=== PATIENT | female | born 1990 | race Caucasian/White ===

== ENCOUNTER 2017-07-31 06:16 | Day surgery (SDC) | payer BC, OTHER ==
[2017-07-31] MEDS ORDERED: ONDANSETRON 4 MG/2 ML VIAL IVPUSH PRN (07:13)
[2017-07-31] MEDS ORDERED: LACTATED RINGERS SOLUTION 1,000 ML IV SCH (07:15)
--- NOTE | 2017-07-31 07:43 | HP ---
Admitting History and Physical - Admission History of Present Illness: Patient is a 26 y/o female with a past medical history of depression and anxiety. Patient presents for ect, she reports receiving ect in the past, last treatment was in 06/29. patient was admitted in [facility] for 6 weeks following a suicide attempt. During this admission she received ECT and reports improvement with depressive symptoms. patient does reports suicidal ideation however, she does not have plan. Patient denies any homicidal ideation , visual or auditory hallucinations. History Source: Patient - Past Medical History ...LMP: 07/17/17 - Smoking History Smoking history: Never smoked Have you smoked in the past 12 months: No - Alcohol/Substance Use Hx Alcohol Use: Yes (SOCIALLY) Home Medications - Allergies Allergies/Adverse Reactions: Allergies Allergy/AdvReac Type Severity Reaction Status Date / Time No Known Drug Allergies Allergy Verified 07/30/17 13:22 - Home Medications Home Medications: Ambulatory Orders Clozapine [Clozapine Odt] 50 mg PO DAILY 07/30/17 Clozapine [Clozapine Odt] 150 mg PO HS 07/30/17 Metformin HCl 500 mg PO BID 07/30/17 Nortriptyline HCl [Pamelor -] 50 mg PO HS 07/30/17 Family Disease History - Family Disease History Family History: Denies Review of Systems - Review of Systems Constitutional: reports: No Symptoms Eyes: reports: No Symptoms HENT: reports: No Symptoms Neck: reports: No Symptoms Cardiovascular: reports: No Symptoms Respiratory: reports: No Symptoms Gastrointestinal: reports: No Symptoms Genitourinary: reports: No Symptoms Musculoskeletal: reports: No Symptoms Integumentary: reports: No Symptoms Neurological: reports: No Symptoms Endocrine: reports: No Symptoms Hematology/Lymphatic: reports: No Symptoms Psychiatric: reports: Depression Physical Examination Constitutional: Yes: Well Nourished, Poor Hygeine Eyes: Yes: WNL, Conjunctiva Clear, EOM Intact HENT: Yes: WNL, Atraumatic, Normocephalic Neck: Yes: WNL, Supple, Trachea Midline Cardiovascular: Yes: WNL, Regular Rate and Rhythm, S1, S2 Respiratory: Yes: WNL, Regular, CTA Bilaterally Gastrointestinal: Yes: WNL, Normal Bowel Sounds, Soft ...Rectal Exam: Yes: Deferred Renal/: Yes: WNL Musculoskeletal: Yes: WNL Edema: No Integumentary: Yes: Tattoos, Other (linear scars to distal billateteral upper extremities) Neurological: Yes: WNL, Alert, Oriented ...Motor Strength: WNL Psychiatric: Yes: WNL, Alert, Oriented, Other (flat affect) Imaging - Results EKG: Other (nsr,non specific t wave abnormality, QTC 458) Assessment/Plan patient is a 26 y/o female that presents for ect, labs and ekg reviewed patient is medically optimized for procedure informed consent, risks/benefits to be obtained by Dr Calle
[2017-07-31 08:08] LABS: ALK PHOS 94 U/L (32-92); ANION GAP 7 (8-16); BILIRUBIN,TOTAL 0.4 mg/dl (0.2-1.0); BLOOD UREA NITROGEN 12 mg/dl (7-18); CALCIUM 9.5 mg/dl (8.4-10.2); CHLORIDE 105 mmol/L (98-107); CO2 27 mmol/L (22-28); CREATININE 0.9 mg/dl (0.6-1.3); POTASSIUM 3.9 mmol/L (3.5-5.1); SGOT/AST 14 U/L (10-42); SGPT/ALT 12 U/L (10-40); SODIUM 139 mmol/L (136-145); TOT PROT 6.6 g/dl (6.4-8.3)
[2017-07-31] MEDS ORDERED: KETAMINE HCL 500 MG/10 ML VIAL ONE (08:14)
[2017-07-31 12:28] LABS: GLUCOSE,RANDOM 105 mg/dL (74-106)
[2017-07-31 17:02] LABS: MAGNESIUM 1.9 mg/dL (1.8-2.4)
--- NOTE | 2017-07-31 17:39 | EKG ---
Test Reason : Blood Pressure : / mmHG Vent. Rate : 086 BPM Atrial Rate : 086 BPM P-R Int : 150 ms QRS Dur : 082 ms QT Int : 388 ms P-R-T Axes : 009 011 -18 degrees QTc Int : 464 ms NORMAL SINUS RHYTHM NONSPECIFIC T WAVE ABNORMALITY PROLONGED QT NO PREVIOUS ECGS AVAILABLE Confirmed by MD MARY, TY ([id number]) on 07/31/2017 5:39:34 PM Referred By: Mando Calle Confirmed By:TY HERNANDEZ MD
== END 2017-07-31 09:50 | disposition home or self-care (01) ==
LOC: FECT 06:16
PROVIDERS: ATTEND Psychiatry & Neurology Psychiatry
PROC: GZB4ZZZ Other Electroconvulsive Therapy (ICD-10-PCS; principal; 2017-07-31 07:30)
DX: F33.2 Major depressive disorder, recurrent severe without psychotic features (principal)
CPT/HCPCS: 36415; 80053; 83735; 84703; 90870; 93005; 94760

== ENCOUNTER 2017-08-04 05:48 | Day surgery (SDC) | payer BC, OTHER ==
[2017-08-04] MEDS ORDERED: KETAMINE HCL 500 MG/10 ML VIAL ONE (07:34)
== END 2017-08-04 09:30 | disposition home or self-care (01) ==
LOC: FECT 05:48
PROVIDERS: ATTEND Psychiatry & Neurology Psychiatry
PROC: GZB4ZZZ Other Electroconvulsive Therapy (ICD-10-PCS; principal; 2017-08-04 07:45)
DX: F33.2 Major depressive disorder, recurrent severe without psychotic features (principal)
CPT/HCPCS: 84703; 90870; 94760

== ENCOUNTER 2017-08-06 05:44 | Day surgery (SDC) | payer BC, OTHER ==
[2017-08-06] MEDS ORDERED: KETAMINE HCL 500 MG/10 ML VIAL ONE (07:22)
[2017-08-06] MEDS ORDERED: ACETAMINOPHEN 325 MG TABLET (FP) PO PRN (07:36)
== END 2017-08-06 09:00 | disposition home or self-care (01) ==
LOC: FECT 05:44
PROVIDERS: ATTEND Psychiatry & Neurology Psychiatry
PROC: GZB4ZZZ Other Electroconvulsive Therapy (ICD-10-PCS; principal; 2017-08-06 07:45)
DX: F33.2 Major depressive disorder, recurrent severe without psychotic features (principal)
CPT/HCPCS: 90870; 94760

== ENCOUNTER 2017-08-08 05:39 | Day surgery (SDC) | payer BC, OTHER ==
[2017-08-08] MEDS ORDERED: MIDAZOLAM HCL 2 MG/2 ML SINGLE DOSE VIAL ONE (08:08)
[2017-08-08] MEDS ORDERED: KETAMINE HCL 500 MG/10 ML VIAL ONE (08:08)
== END 2017-08-08 11:08 | disposition home or self-care (01) ==
LOC: FECT 05:39
PROVIDERS: ATTEND Psychiatry & Neurology Psychiatry
PROC: GZB4ZZZ Other Electroconvulsive Therapy (ICD-10-PCS; principal; 2017-08-08 07:30)
DX: F33.2 Major depressive disorder, recurrent severe without psychotic features (principal)
CPT/HCPCS: 84703; 90870; 94760

== ENCOUNTER 2017-08-11 05:44 | Day surgery (SDC) | payer BC, OTHER ==
[2017-08-11] MEDS ORDERED: MIDAZOLAM HCL 2 MG/2 ML SINGLE DOSE VIAL ONE (07:51)
[2017-08-11] MEDS ORDERED: KETAMINE HCL 500 MG/10 ML VIAL ONE (07:51)
== END 2017-08-11 09:35 | disposition home or self-care (01) ==
LOC: FECT 05:44
PROVIDERS: ATTEND Psychiatry & Neurology Psychiatry
PROC: GZB4ZZZ Other Electroconvulsive Therapy (ICD-10-PCS; principal; 2017-08-11 07:30)
DX: F33.2 Major depressive disorder, recurrent severe without psychotic features (principal)
CPT/HCPCS: 90870; 94760

== ENCOUNTER 2017-08-13 05:41 | Day surgery (SDC) | payer BC, OTHER ==
[2017-08-13] MEDS ORDERED: KETAMINE HCL 500 MG/10 ML VIAL ONE (07:30)
[2017-08-13] MEDS ORDERED: ACETAMINOPHEN 325 MG TABLET (FP) PO PRN (07:59)
[2017-08-13] MEDS ORDERED: ONDANSETRON 4 MG/2 ML VIAL IVPUSH PRN (07:59)
[2017-08-13] MEDS ORDERED: PROMETHAZINE HCL 25 MG/1 ML VIAL IVPUSH PRN (07:59)
== END 2017-08-13 09:45 | disposition home or self-care (01) ==
LOC: FECT 05:41
PROVIDERS: ATTEND Psychiatry & Neurology Psychiatry
PROC: GZB4ZZZ Other Electroconvulsive Therapy (ICD-10-PCS; principal; 2017-08-13 07:15)
DX: F33.2 Major depressive disorder, recurrent severe without psychotic features (principal)
CPT/HCPCS: 84703; 90870; 94760

== ENCOUNTER 2017-08-15 05:41 | Day surgery (SDC) | payer BC, OTHER ==
[2017-08-11 09:10] VITALS: BMI 30.8
[2017-08-15] MEDS ORDERED: KETAMINE HCL 500 MG/10 ML VIAL ONE (07:44)
[2017-08-15 08:50] VITALS: TEMP 98
[2017-08-15 09:48] VITALS: BP 129/89; PULSE 92
== END 2017-08-15 09:40 | disposition home or self-care (01) ==
LOC: FECT 05:41
PROVIDERS: ATTEND Psychiatry & Neurology Psychiatry
PROC: GZB4ZZZ Other Electroconvulsive Therapy (ICD-10-PCS; principal; 2017-08-15 07:15)
DX: F33.2 Major depressive disorder, recurrent severe without psychotic features (principal)
CPT/HCPCS: 84703; 90870; 94760

== ENCOUNTER 2017-08-18 05:45 | Day surgery (SDC) | payer BC, OTHER ==
[2017-08-11 12:34] VITALS: BMI 30.8
[2017-08-18] MEDS ORDERED: KETAMINE HCL 500 MG/10 ML VIAL ONE (07:23)
[2017-08-18] MEDS ORDERED: ONDANSETRON 4 MG/2 ML VIAL IVPUSH PRN (08:03)
[2017-08-18] MEDS ORDERED: oxyCODONE HCL 5 MG TABLET PO PRN (08:03)
[2017-08-18] MEDS ORDERED: LACTATED RINGERS SOLUTION 1,000 ML IV SCH (08:15)
[2017-08-18 08:53] VITALS: TEMP 98.4
[2017-08-18 09:48] VITALS: BP 130/92; PULSE 92
== END 2017-08-18 10:01 | disposition home or self-care (01) ==
LOC: FECT 05:45
PROVIDERS: ATTEND Psychiatry & Neurology Psychiatry
PROC: GZB4ZZZ Other Electroconvulsive Therapy (ICD-10-PCS; principal; 2017-08-18 07:30)
DX: F33.2 Major depressive disorder, recurrent severe without psychotic features (principal)
CPT/HCPCS: 90870; 94760

== ENCOUNTER 2017-08-22 05:41 | Day surgery (SDC) | payer BC, OTHER ==
[2017-08-19 10:12] VITALS: BMI 30.8
[2017-08-22] MEDS ORDERED: KETAMINE HCL 500 MG/10 ML VIAL ONE (09:10)
[2017-08-22 10:13] VITALS: TEMP 98
[2017-08-22 11:20] VITALS: BP 133/84; PULSE 96
== END 2017-08-22 11:15 | disposition home or self-care (01) ==
LOC: FECT 05:41
PROVIDERS: ATTEND Psychiatry & Neurology Psychiatry
PROC: GZB4ZZZ Other Electroconvulsive Therapy (ICD-10-PCS; principal; 2017-08-22 07:15)
DX: F33.2 Major depressive disorder, recurrent severe without psychotic features (principal)
CPT/HCPCS: 84703; 90870; 94760

== ENCOUNTER 2017-08-25 05:39 | Day surgery (SDC) | payer BC, OTHER ==
[2017-08-19 10:55] VITALS: BMI 30.8
[2017-08-25] MEDS ORDERED: KETAMINE HCL 500 MG/10 ML VIAL ONE (07:15)
[2017-08-25 08:53] VITALS: TEMP 98
[2017-08-25 09:27] VITALS: BP 128/84; PULSE 92
== END 2017-08-25 09:29 | disposition home or self-care (01) ==
LOC: FECT 05:39
PROVIDERS: ATTEND Psychiatry & Neurology Psychiatry
PROC: GZB4ZZZ Other Electroconvulsive Therapy (ICD-10-PCS; principal; 2017-08-25 07:00)
DX: F33.2 Major depressive disorder, recurrent severe without psychotic features (principal)
CPT/HCPCS: 90870; 94760

== ENCOUNTER 2017-08-27 05:40 | Day surgery (SDC) | payer BC, OTHER ==
[2017-08-19 10:57] VITALS: BMI 30.8
[2017-08-27] MEDS ORDERED: KETAMINE HCL 500 MG/10 ML VIAL ONE (07:40)
[2017-08-27 08:53] VITALS: TEMP 98.6
[2017-08-27 09:27] VITALS: BP 124/92; PULSE 90
== END 2017-08-27 09:45 | disposition home or self-care (01) ==
LOC: FECT 05:40
PROVIDERS: ATTEND Psychiatry & Neurology Psychiatry
PROC: GZB4ZZZ Other Electroconvulsive Therapy (ICD-10-PCS; principal; 2017-08-27 07:00)
DX: F33.2 Major depressive disorder, recurrent severe without psychotic features (principal)
CPT/HCPCS: 84703; 90870; 94760

== ENCOUNTER 2017-08-29 05:47 | Day surgery (SDC) | payer BC, OTHER ==
[2017-08-25 11:47] VITALS: BMI 30.8
[2017-08-29] MEDS ORDERED: KETAMINE HCL 500 MG/10 ML VIAL ONE (07:31)
[2017-08-29 08:47] VITALS: TEMP 97.8
[2017-08-29 09:14] VITALS: BP 130/80; PULSE 92
== END 2017-08-29 09:40 | disposition home or self-care (01) ==
LOC: FECT 05:47
PROVIDERS: ATTEND Psychiatry & Neurology Psychiatry
PROC: GZB4ZZZ Other Electroconvulsive Therapy (ICD-10-PCS; principal; 2017-08-29 08:30)
DX: F33.2 Major depressive disorder, recurrent severe without psychotic features (principal)

== ENCOUNTER 2017-09-01 05:57 | Day surgery (SDC) | payer BC, OTHER ==
[2017-08-29 17:22] VITALS: BMI 30.8
--- NOTE | 2017-09-01 06:49 | HP ---
Admitting History and Physical - Admission History of Present Illness: patient is a 26 y/o female with a past medical history of depression and anxiety. Patient presents for ect her last ect was 08/29/18. Patient reports feeling a slight improvement in depressive symptoms since starting ect. She denies any recent illnesses or hospitalizations. Patient denies any suicidal or homicidal ideation, visual or auditory hallucinations. History Source: Patient Limitations to Obtaining History: No Limitations - Past Medical History ...LMP: 08/18/17 - Smoking History Smoking history: Never smoked Have you smoked in the past 12 months: No - Alcohol/Substance Use Hx Alcohol Use: Yes (SOCIALLY) History of Substance Use: reports: None - Social History Usual Living Arrangement: Yes: With Parent ADL: Independent History of Recent Travel: No Home Medications - Allergies Allergies/Adverse Reactions: Allergies Allergy/AdvReac Type Severity Reaction Status Date / Time No Known Drug Allergies Allergy Verified 08/12/17 17:15 - Home Medications Home Medications: Ambulatory Orders Clozapine [Clozapine Odt] 50 mg PO DAILY 07/30/17 Clozapine [Clozapine Odt] 150 mg PO HS 07/30/17 Metformin HCl 500 mg PO BID 07/30/17 Nortriptyline HCl [Pamelor -] 50 mg PO HS 07/30/17 Doxycycline Hyclate 100 mg PO BID 08/13/17 Family Disease History - Family Disease History Family History: Denies Review of Systems - Review of Systems Constitutional: reports: No Symptoms Eyes: reports: No Symptoms HENT: reports: No Symptoms Neck: reports: No Symptoms Cardiovascular: reports: No Symptoms Respiratory: reports: No Symptoms Gastrointestinal: reports: No Symptoms Genitourinary: reports: No Symptoms Breasts: reports: No Symptoms Reported Musculoskeletal: reports: No Symptoms Integumentary: reports: No Symptoms Neurological: reports: No Symptoms Endocrine: reports: No Symptoms Hematology/Lymphatic: reports: No Symptoms Psychiatric: reports: No Symptoms Physical Examination Constitutional: Yes: Well Nourished, Calm, Other Eyes: Yes: WNL, Conjunctiva Clear, EOM Intact HENT: Yes: WNL, Atraumatic, Normocephalic Neck: Yes: WNL, Supple, Trachea Midline Cardiovascular: Yes: WNL, Regular Rate and Rhythm, S1, S2 Respiratory: Yes: WNL, Regular, CTA Bilaterally Gastrointestinal: Yes: WNL, Normal Bowel Sounds, Soft ...Rectal Exam: Yes: Deferred Renal/: Yes: WNL Musculoskeletal: Yes: WNL Extremities: Yes: WNL Edema: No Peripheral Pulses WNL: Yes Peripheral Pulses: Left Radial: 4+, Right Radial: 4+, Left Doralis Pedis: 3+, Right Dorsalis Pedis: 3+, Left Femoral: 3+, Right Femoral: 3+ Integumentary: Yes: Other (closed commodenes to face) ...Motor Strength: WNL Psychiatric: Yes: WNL, Alert, Oriented Labs: reviewed 07/31 Imaging - Results EKG: Image Reviewed, Other (nsr) Assessment/Plan patient is a 26 y/o female that presents for ect, labs and ekg reviewed patient is medically optimized for procedure informed consent, risks/benefits to be obtained by Dr Calle.
[2017-09-01] MEDS ORDERED: KETAMINE HCL 500 MG/10 ML VIAL ONE (08:54)
[2017-09-01] MEDS ORDERED: ONDANSETRON 4 MG/2 ML VIAL IVPUSH PRN (09:59)
[2017-09-01] MEDS ORDERED: oxyCODONE HCL 5 MG TABLET PO PRN (09:59)
[2017-09-01] MEDS ORDERED: LACTATED RINGERS SOLUTION 1,000 ML IV SCH (10:00)
[2017-09-01 11:17] VITALS: TEMP 97.9
[2017-09-01 11:19] VITALS: BP 142/94; PULSE 92
== END 2017-09-01 11:10 | disposition home or self-care (01) ==
LOC: FECT 05:57
PROVIDERS: ATTEND Psychiatry & Neurology Psychiatry
PROC: GZB4ZZZ Other Electroconvulsive Therapy (ICD-10-PCS; principal; 2017-09-01 08:45)
DX: F33.2 Major depressive disorder, recurrent severe without psychotic features (principal)
CPT/HCPCS: 82962

== ENCOUNTER 2017-09-03 05:44 | Day surgery (SDC) | payer BC, OTHER ==
[2017-09-02 08:50] VITALS: BMI 30.8
[2017-09-03] MEDS ORDERED: KETAMINE HCL 500 MG/10 ML VIAL ONE (08:20)
--- NOTE | 2017-09-03 08:53 | PN ---
Progress Note (short form) - Note Progress Note: ANESTHESIOLOGY Was informed by nurse human resources district manager that after previous ECT patient had driven herself home with her mother in the car. I spoke with both the patient and her mother (with patients' permission) that under no circumstances is this acceptable. The patient cannot drive the same day after having undergone ECT and general anesthesia. They were told this is incredibly unsafe and that this can never happen again. Both the mother and the patient expressed that they understood completely and that it indeed will not happen again.
[2017-09-03 09:40] VITALS: TEMP 98
[2017-09-03 10:09] VITALS: BP 125/90; PULSE 96
== END 2017-09-03 10:23 | disposition home or self-care (01) ==
LOC: FECT 05:44
PROVIDERS: ATTEND Psychiatry & Neurology Psychiatry
PROC: GZB4ZZZ Other Electroconvulsive Therapy (ICD-10-PCS; principal; 2017-09-03 07:45)
DX: F33.2 Major depressive disorder, recurrent severe without psychotic features (principal)

== ENCOUNTER 2017-09-08 05:41 | Day surgery (SDC) | payer BC, OTHER ==
[2017-09-05 15:42] VITALS: BMI 30.8
[2017-09-08] MEDS ORDERED: KETAMINE HCL 500 MG/10 ML VIAL ONE (07:20)
[2017-09-08 08:28] VITALS: TEMP 98
[2017-09-08 08:46] VITALS: BP 133/89; PULSE 92
== END 2017-09-08 09:00 | disposition home or self-care (01) ==
LOC: FECT 05:41
PROVIDERS: ATTEND Psychiatry & Neurology Psychiatry
PROC: GZB4ZZZ Other Electroconvulsive Therapy (ICD-10-PCS; principal; 2017-09-08 07:30)
DX: F33.2 Major depressive disorder, recurrent severe without psychotic features (principal)
CPT/HCPCS: 90870; 94760

== ENCOUNTER 2017-09-10 06:00 | Day surgery (SDC) | payer BC, OTHER ==
[2017-09-05 15:46] VITALS: BMI 30.8
[2017-09-10] MEDS ORDERED: KETAMINE HCL 500 MG/10 ML VIAL ONE (07:25)
[2017-09-10 09:20] VITALS: TEMP 97.8
[2017-09-10 09:21] VITALS: BP 124/89; PULSE 95
== END 2017-09-10 09:23 | disposition home or self-care (01) ==
LOC: FECT 06:00
PROVIDERS: ATTEND Psychiatry & Neurology Psychiatry
PROC: GZB4ZZZ Other Electroconvulsive Therapy (ICD-10-PCS; principal; 2017-09-10 07:30)
DX: F33.2 Major depressive disorder, recurrent severe without psychotic features (principal)
CPT/HCPCS: 84703; 90870; 94760

== ENCOUNTER 2017-09-12 05:43 | Day surgery (SDC) | payer BC, OTHER ==
[2017-09-05 15:50] VITALS: BMI 30.8
[2017-09-12] MEDS ORDERED: KETAMINE HCL 500 MG/10 ML VIAL ONE (08:02)
[2017-09-12 08:16] VITALS: TEMP 98
[2017-09-12] MEDS ORDERED: PROMETHAZINE HCL 25 MG/1 ML VIAL IVPUSH PRN (08:16)
[2017-09-12] MEDS ORDERED: ONDANSETRON 4 MG/2 ML VIAL IVPUSH PRN (08:16)
[2017-09-12] MEDS ORDERED: ACETAMINOPHEN 500 MG TABLET (FP) PO PRN (08:16)
[2017-09-12 09:57] VITALS: PULSE 87
[2017-09-12 10:45] VITALS: BP 124/80
== END 2017-09-12 10:15 | disposition home or self-care (01) ==
LOC: FECT 05:43
PROVIDERS: ATTEND Psychiatry & Neurology Psychiatry
PROC: GZB4ZZZ Other Electroconvulsive Therapy (ICD-10-PCS; principal; 2017-09-12 07:00)
DX: F33.2 Major depressive disorder, recurrent severe without psychotic features (principal)
CPT/HCPCS: 90870; 94760

== ENCOUNTER 2017-09-15 05:44 | Day surgery (SDC) | payer BC, OTHER ==
[2017-09-12 11:55] VITALS: BMI 30.8
[2017-09-15] MEDS ORDERED: KETAMINE HCL 500 MG/10 ML VIAL ONE (07:49)
[2017-09-15 09:30] VITALS: TEMP 98.7
[2017-09-15 09:33] VITALS: BP 139/89; PULSE 90
== END 2017-09-15 09:30 | disposition home or self-care (01) ==
LOC: FECT 05:44
PROVIDERS: ATTEND Psychiatry & Neurology Psychiatry
PROC: GZB4ZZZ Other Electroconvulsive Therapy (ICD-10-PCS; principal; 2017-09-15 07:45)
DX: F33.2 Major depressive disorder, recurrent severe without psychotic features (principal)
CPT/HCPCS: 84703; 90870; 94760

== ENCOUNTER 2017-09-19 05:38 | Day surgery (SDC) | payer BC, OTHER ==
[2017-09-12 12:03] VITALS: BMI 30.8
[2017-09-19] MEDS ORDERED: KETAMINE HCL 500 MG/10 ML VIAL ONE (07:59)
[2017-09-19 09:22] VITALS: TEMP 98.1
[2017-09-19 10:16] VITALS: BP 135/88; PULSE 94
[2017-09-19] MEDS ORDERED: ONDANSETRON 4 MG/2 ML VIAL IVPUSH PRN (11:59)
[2017-09-19] MEDS ORDERED: LACTATED RINGERS SOLUTION 1,000 ML IV SCH (12:00)
== END 2017-09-19 09:50 | disposition home or self-care (01) ==
LOC: FECT 05:38
PROVIDERS: ATTEND Psychiatry & Neurology Psychiatry
PROC: GZB4ZZZ Other Electroconvulsive Therapy (ICD-10-PCS; principal; 2017-09-19 07:30)
DX: F33.2 Major depressive disorder, recurrent severe without psychotic features (principal)
CPT/HCPCS: 84703; 90870; 94760